=== PATIENT | male | born 1970 | race African-American/Black ===

== ENCOUNTER 2016-10-31 02:11 | Emergency (ER) | payer SELFPAY ==
[~2016-10-31] VITALS: Ht 175.3 cm; Wt 74.5 kg
[~2016-10-31 02:11] MED LIST: BACTDS PO; CEPH-443 PO; HYDR-3498 PO
[2016-10-31 02:12] VITALS: Ht 175.3 cm; Wt 74.5 kg
== END 2016-10-31 05:00 | disposition left against medical advice (07) ==
LOC: FTE 02:11
DX: Z53.21 Procedure and treatment not carried out due to patient leaving prior to being seen by health care provider (principal)

== ENCOUNTER 2016-12-26 03:45 | Emergency (ER) | payer SELFPAY ==
[~2016-12-26] VITALS: Ht 175.3 cm; Wt 75.0 kg
[2016-12-26 03:53] VITALS: Ht 175.3 cm; Wt 75.0 kg
== END 2016-12-26 05:15 | disposition left against medical advice (07) ==
LOC: E/R 03:45
DX: Z53.21 Procedure and treatment not carried out due to patient leaving prior to being seen by health care provider (principal)

== ENCOUNTER 2017-01-09 02:56 | Emergency (ER) | payer BC ==
[~2017-01-09] VITALS: Ht 175.3 cm; Wt 75.0 kg
[2017-01-09 03:07] VITALS: Ht 175.3 cm; Wt 75.0 kg
--- NOTE | 2017-01-09 04:24 | ERD ---
ER Documentation Chief Complaint Date/Time DATE: 01/09/17 TIME: 04:17 Chief Complaint states feels "bugs" crawling on skin. HPI 46-year-old male with a past medical history of hyperlipidemia, schizoaffective disorder presents to the ED stating that he feels like bugs are crawling on his skin on and off for the last 3 months. States that he has seen them also in his bags. Reports that he has been staying overnight at motels. States that they are transparent and feels like they are under his close. Patient describes that they appear to look like fruit baths, lizards. Reports that they are snap states that they are spinning and these features are crawling all around his bags. Reports that he drinks 1 wine cooler, half a pack of cigarettes, also did cocaine, crystal meth and marijuana earlier tonight. Denies any suicidal or homicidal ideations. States that he wants to report this to the CDC and health department. Denies any fever, chills, chest pain, shortness of breath, abdominal pain, nausea, vomiting. ROS All systems reviewed and are negative except as per history of present illness. Medications Home Meds Active Scripts Hydrocodone Bit-Acetaminophen* ([place]*) 5-325 Mg Tab, 1 TAB PO Q6 Y for PAIN, # 7 TAB Prov:KATHERINE GLASER PA-C 04/23/16 Cephalexin* (Keflex*) 500 Mg Capsule, 500 MG PO QID for 10 Days, CAP Prov:KATHERINE GLASER PA-C 04/23/16 Sulfamethoxazole-Trimethoprim* (Bactrim* DS) 800-160 Mg Tab, 1 TAB PO DAILY for 10 Days, TAB Prov:KATHERINE GLASER PA-C 04/23/16 Allergies Allergies: Coded Allergies: No Known Allergy (Unverified , 01/09/17) PMhx/Soc Medical and Surgical Hx: pt denies Surgical Hx History of Surgery: No Hx Neurological Disorder: No Hx Respiratory Disorders: No Hx Cardiac Disorders: No Hx Psychiatric Problems: Yes (SCHIZO AFFECTIVE DISORDER) Hx Miscellaneous Medical Probl: Yes (DYSLIPIDEMIA) Hx Alcohol Use: Yes Hx Substance Use: Yes (COCAINE, METH, MARIJUANA) Hx Tobacco Use: Yes Smoking Status: Current every day smoker Physical Exam Vitals Vital Signs Date Time Temp Pulse Resp B/P Pulse Ox O2 Delivery O2 Flow Rate FiO2 01/09/17 03:07 97.1 92 20 141/84 99 Physical Exam Const: [id number], well-nourished. In no acute distress. Head: Atraumatic, normocephalic Eyes: Normal Conjunctiva without injection. No purulent discharge. PERRLA. EOMI ENT: Normal external ear. Ear canal without erythema. Tympanic membrane pearly nation without effusion or bulging. Nasal canal clear with normal turbinates. Moist oropharynx without tonsillar exudates. Non-erythematous pharynx. Uvula midline. No drooling. No trismus. Neck: No cervical midline tenderness. Full range of motion. No meningismus. No cervical lymphadenopathy. No JVD. Resp: Clear to auscultation bilaterally. No wheezing, rhonchi, rales, or crackles. No accessory muscle use. No retractions. Cardio: Regular rate and rhythm. No murmurs, rubs or gallops. Abd: Soft, non tender, non distended. Normal bowel sounds. No palpable masses. No rebound tenderness. No guarding. Negative McBurney's Point. Negative Dodd's Sign. Skin: Normal skin turgor. No petechiae or rashes. No insect bites noted Back: No midline tenderness. No CVA tenderness. Ext: No cyanosis, or edema. Distal pulses intact bilaterally. Neur: Awake and alert. Normal gait. Normal coordination. Cranial Nerves II- VII intact. Normal finger to nose. Muscle strength 5/5. Sensation intact. Psych: Normal Mood and Affect Procedures/MDM This is a 46-year-old male with a past medical history of schizoaffective disorder, hyperlipidemia presents to the ED complaining of bugs crawling on his skin. Patient is afebrile and nontoxic-appearing. Patient has normal vital signs. At this time patient has been under the influence with alcohol and other various drugs. Patient is in need of a psychiatric evaluation. Patient however denies any suicidal or homicidal ideations. Differentials include delusional parasitosis. There is low suspicion for patient being in danger to low suspicion for sepsis, scabies, tinea infection, gangrene, meningococcemia, TEN, erythema multiforme, or other emergent conditions. This case was discussed with the charge nurse, Wendy and she stated that patient can be moved to room 06/20/1981. While patient was being transferred to room 9, patient stated that he did not want to be evaluated any longer. Patient decided to elope from the hospital. Risks of leaving the hospital without proper evaluation and discharge was discussed with the patient and he under state. He also denied wanting to sign an AMA form at this time. PIERO CHAPPELL PA-C Jan 09, 2017 04:24
== END 2017-01-09 03:55 | disposition left against medical advice (07) ==
LOC: FTE 02:56 → E/R 03:55
DX: Z53.21 Procedure and treatment not carried out due to patient leaving prior to being seen by health care provider (principal)